=== PATIENT | female | born 1945 ===

== ENCOUNTER 2018-04-20 12:15 | Inpatient (IN) | payer OTHER ==
[~2018-04-20] VITALS: Ht 160 cm; Wt 65.8 kg
[2018-04-20] MEDS ORDERED: AVAPRO150 MG PO (14:46)
[2018-04-20] MEDS ORDERED: OMEPRAZOLE20 M1 PO (14:46)
[2018-04-20] MEDS ORDERED: NEURONTIN800 MG PO (14:46)
[2018-04-20] MEDS ORDERED: TRAMADOL HCL50 MG PO (14:47)
[2018-04-20] MEDS ORDERED: ASA81 MG PO (14:47)
[2018-04-20] MEDS ORDERED: ZANAFLEX4 M1 PO (14:47)
== END 2018-04-30 17:52 | disposition home or self-care (01) | DRG 330 ==
LOC: SURG 04-27 07:36 → O/R 04-27 07:36 → SURG 04-27 10:45
PROVIDERS: Colon & Rectal Surgery
PROC: 0DJD8ZZ Inspection of Lower Intestinal Tract, Via Natural or Artificial Opening Endoscopic (ICD-10-PCS; 2018-04-27)
PROC: 0DTN4ZZ Resection of Sigmoid Colon, Percutaneous Endoscopic Approach (ICD-10-PCS; principal; 2018-04-27 10:45)
DX: K57.32 Diverticulitis of large intestine without perforation or abscess without bleeding (principal); K56.690 Other partial intestinal obstruction; I10 Essential (primary) hypertension; K21.9 Gastro-esophageal reflux disease without esophagitis

== ENCOUNTER 2019-06-10 06:00 | Day surgery (SDC) | payer OTHER ==
[~2019-06-10 06:00] MED LIST: ASA81 MG PO; AVAPRO150 MG PO; NEURONTIN800 MG PO; OMEPRAZOLE20 M1 PO; TRAMADOL HCL50 MG PO; ZANAFLEX4 M1 PO
== END 2019-06-10 09:55 | disposition home or self-care (01) ==
LOC: AMB-ENDOS 06:00
DX: K57.32 Diverticulitis of large intestine without perforation or abscess without bleeding (principal); K64.1 Second degree hemorrhoids